=== PATIENT | male | born 1980 | race Caucasian/White ===

== ENCOUNTER 2017-05-08 11:58 | Emergency (ER) | payer SELFPAY ==
[~2017-05-08] VITALS: Ht 170.2 cm; Wt 75.0 kg
[2017-05-08] MEDS ORDERED: KETOROLAC 60MG/2ML VIAL IM ONE (16:45)
[2017-05-08] MEDS ORDERED: METOCLOPRAMIDE HCL 10MG TABLET PO ONE (16:45)
[2017-05-08 17:28] VITALS: BP 104/44
== END 2017-05-08 19:02 | disposition home or self-care (01) ==
LOC: ER 14:34
DX: H11.32 Conjunctival hemorrhage, left eye (principal); R51 Headache
CPT/HCPCS: 96372; 99283; J1885; Z7610; J8597